=== PATIENT | female | born 1980 | race Caucasian/White ===

== ENCOUNTER 2022-06-06 08:16 | Day surgery (SDC) | payer OTHER, SELFPAY ==
[2022-05-25 12:18] VITALS: BMI 34.4
[2022-06-06 08:55] VITALS: BP 112/78; PULSE 90; RESP 20; TEMP 36.8; O2SAT 100
[2022-06-06] MEDS: LACTATED RINGERS 1,000 ML 150 ML IV CONT (09:17)
--- NOTE | 2022-06-06 09:21 | WPDANESEPPF ---
Anes - Initial Pre Proc Eval Procedure: Operation Date: 06/06/22 10:15 Proposed Procedures p Diagnostic Colonoscopy - Bharat Coleman MD Date/Time: 06/06/22 09:21 Surgeon: Bharat Coleman MD Pre Op Diagnosis: Hematochezia, Change In Bowel Habits Patient Data Age: 42 Gender: F Height: 1.63 m Weight: 89 kg Last Vital Signs Temp 36.8 C 06/06/22 08:55 Pulse 90 06/06/22 08:55 Resp 20 06/06/22 08:55 BP 112/78 06/06/22 08:55 Pulse Ox 100 06/06/22 08:55 O2 Del Method Room Air 06/06/22 08:55 Allergies Allergy/AdvReac Type Severity Reaction Status Date / Time No Known Allergies Allergy Verified 06/06/22 09:02 Home Medications Medication Instructions Recorded Confirmed Type sodium,potassium,mag sulfates 17.5 See Rx Instructions PO .COMPLEX 03/29/22 06/06/22 Rx gram-3.13 gram-1.6 gram oral soln #354 mL (Suprep Bowel Prep Kit) buspirone 10 mg tablet 10 mg PO BID 05/25/22 06/06/22 History cariprazine 1.5 mg capsule 1.5 mg PO DAILY 05/25/22 06/06/22 History (Vraylar) lamotrigine 100 mg tablet 100 mg PO BID 05/25/22 06/06/22 History levothyroxine 50 mcg tablet 50 mcg PO DAILY 05/25/22 06/06/22 History lisdexamfetamine 50 mg capsule 50 mg PO DAILY 05/25/22 06/06/22 History (Vyvanse) spironolactone 100 mg tablet 100 mg PO DAILY 05/25/22 06/06/22 History Patient hx anesthesia problems: none Family hx anesthesia problems: none Results Review: All pre-operative results and documents have been reviewed as part of the pre-operative evaluation. ON LICENSE OF [facility] Past Medical History Medical History (Updated 06/06/22 @ 09:22 by Praveen Hanson MD) Depression Hypothyroidism Obesity Surgical History Surgical History (Updated 06/06/22 @ 09:22 by Praveen Hanson MD) H/O breast augmentation Social History Social History Smoking status: Never smoker Alcohol intake: never Substance use: never Substance use type: does not use Living arrangements: with family Spiritual care concerns: No Anes - Eval Final PreProcedure Day of Procedure 06/06/22 09:21 Patient weight: obese Heart: regular rate and rhythm Lungs: clear to auscultation Airway: Mallampati scale class II Neurological: alert and oriented Last oral intake: >/= 8 hours ASA classification: II Emergent: no Anesthetic plan: proceed Anesthesia type and monitoring: general GIVS and standard monitoring Results Review: All pre-operative results and documents have been reviewed as part of the pre-operative evaluation. Informed Consent: The patient's anesthetic plan and its attendant risks and benefits were discussed with the patient/family/POA. Questions were solicited and answers provided to the satisfaction of the patient/family/POA.
--- NOTE | 2022-06-06 09:41 | PM.HPGS ---
History of Present Illness History of Present Illness Consent: Risks, benefits, and alternatives have been discussed and questions answered. Patient agrees to proceed with procedure. Chief complaint: Hematochezia, Change In Bowel Habits Narrative: Светлана Prado is a 42 year old female Presents for colonoscopy. Patient reports several months ago had bright red blood per rectum after a bowel movement. This persisted for several bowel movements and then subsequently has stopped. She does report subsequently she had pain only when she had a bowel movement. Occasionally pain was low in the pelvic area. Patient states this has returned to normal subsequently. She currently denies any pain or bowel habits returned to normal. He patient is referred for colonoscopy to evaluate bright red blood per rectum several months ago. Review of Systems Review of Systems: Review of systems noncontributory. [facility] Past Medical History Medical History (Updated 06/06/22 @ 09:43 by Bharat Coleman MD) Depression Hypothyroidism Obesity Surgical History Surgical History (Updated 06/06/22 @ 09:22 by Praveen Hanson MD) H/O breast augmentation Social History Social History Smoking status: Never smoker Alcohol intake: never Substance use: never Substance use type: does not use Living arrangements: with family Spiritual care concerns: No Meds Home Medications and Allergies Home Medications Medication Instructions Recorded Confirmed Type sodium,potassium,mag sulfates 17.5 See Rx Instructions PO .COMPLEX 03/29/22 06/06/22 Rx gram-3.13 gram-1.6 gram oral soln #354 mL (Suprep Bowel Prep Kit) buspirone 10 mg tablet 10 mg PO BID 05/25/22 06/06/22 History cariprazine 1.5 mg capsule 1.5 mg PO DAILY 05/25/22 06/06/22 History (Vraylar) lamotrigine 100 mg tablet 100 mg PO BID 05/25/22 06/06/22 History levothyroxine 50 mcg tablet 50 mcg PO DAILY 05/25/22 06/06/22 History lisdexamfetamine 50 mg capsule 50 mg PO DAILY 05/25/22 06/06/22 History (Vyvanse) spironolactone 100 mg tablet 100 mg PO DAILY 05/25/22 06/06/22 History Allergies Allergy/AdvReac Type Severity Reaction Status Date / Time No Known Allergies Allergy Verified 06/06/22 09:02 Vital Signs Vital Signs - 24 hr 06/06/22 08:55 Temperature 98.2 F Pulse Rate 90 Respiratory Rate 20 Blood Pressure 112/78 Pulse Oximetry 100 Oxygen Delivery Room Air Exam Narrative: Physical exam reveals patient to be alert. Vital signs stable. HEENT exam is unremarkable. Patient is anicteric. Lungs are clear to auscultation and percussion heart is without murmur or extra sounds. Abdomen bowel sounds are present soft nontender with no organomegaly. Digital external rectal exam is normal. Assessment and Plan Assessment and plan (1) Rectal bleeding: Code(s): K62.5 - Hemorrhage of anus and rectum Status: Acute Assessment and Plan: Rectal bleeding that occurred several months ago followed by rectal pain with bowel movements may been from hemorrhoids or potentially an anal fissure. Other etiologies cannot be excluded. Plan fora colonoscopy at this time. High-fiber diet advised. Further recommendations may be given after endoscopy.
[2022-06-06 10:05] VITALS: BP 104/65; PULSE 78; RESP 18; O2SAT 100
--- NOTE | 2022-06-06 10:14 | WPDANESPN ---
Anes - Prog Note Post-Op Date/Time: 06/06/22 10:14 Cardiovascular status: normal Respiratory status: normal Airway patency: baseline Mental status: baseline Post-Op hydration status: normal Vital Signs: Last Vital Signs Temp 36.8 C 06/06/22 08:55 Pulse 90 06/06/22 08:55 Resp 20 06/06/22 08:55 BP 112/78 06/06/22 08:55 Pulse Ox 100 06/06/22 08:55 O2 Del Method Room Air 06/06/22 08:55 Pain Score (VAS): 0/10 I/O: Intake & Output 06/05/22 06/06/22 06/06/22 23:59 07:59 15:59 Intake Total 400 Balance 400 Patient Feedback: Patient satisfied with anesthetic care.
[2022-06-06 10:15] VITALS: BP 100/76; PULSE 69; RESP 20; O2SAT 100
[2022-06-06 10:25] VITALS: BP 104/76; PULSE 67; RESP 20; O2SAT 100
== END 2022-06-06 10:40 | disposition home or self-care (01) ==
PROVIDERS: Visit Provider Internal Medicine Gastroenterology
PROC: 0DJD8ZZ Inspection of Lower Intestinal Tract, Via Natural or Artificial Opening Endoscopic (ICD-10-PCS; CPT 45378; principal; 2022-06-06 10:15)
DX: K62.5 Hemorrhage of anus and rectum (principal)
CPT/HCPCS: 45378